=== PATIENT | male | born 1960 | race Caucasian/White ===

== ENCOUNTER 2021-07-10 09:17 | Emergency (ER) | payer SELFPAY ==
[~2021-07-10] VITALS: Ht 165.1 cm; Wt 74.8 kg
[2021-07-10 09:19] VITALS: BP 135/68
--- NOTE | 2021-07-10 10:25 | NUR ---
PT SEEN AND D/C BY DR VALLADARES, NO NURSING INTERVENTIONS PROVIDED
--- NOTE | 2021-07-10 10:26 | NUR ---
Patient discharged with v/s stable. Written and verbal after care instructions ABOUT ACUTE KNEE PAIN AND ARTHRITIS given and explained. Patient verbalized understanding. Ambulatory with steady gait. All questions addressed prior to discharge. Advised to follow up with PMD.
== END 2021-07-10 10:26 | disposition home or self-care (01) ==
LOC: EEVIPCON 09:17 → MED 09:17
DX: M12.562 Traumatic arthropathy, left knee (principal); S82.002S Unspecified fracture of left patella, sequela; J45.909 Unspecified asthma, uncomplicated; X58.XXXS Exposure to other specified factors, sequela
CPT/HCPCS: 71046; 73562; 99284